=== PATIENT | female | born 1960 | race Caucasian/White ===

== ENCOUNTER 2016-04-16 20:13 | Emergency (ER) | payer OTHER ==
[2016-04-16] MEDS ORDERED: HYDROCODONE/ACETAMINOPHEN 5/325MG TABLET ONE (20:50)
--- NOTE | 2016-04-17 07:34 | RAD ---
ADDENDUM #1 Reevaluation of the examination was performed. There is a nondisplaced subtle fracture identified involving the posterior aspect of the right ninth rib. The subsequently described a definitive fracture is not well delineated on this exam. ORIGINAL REPORT History: Fell downstairs. Comparison: 01/29/2015. Technique: 2 views Findings: The soft tissue and bony structures are unremarkable. The heart size is appropriate. No infiltrate, effusion or pneumothorax is observed. The hilar and mediastinal structures are normal. Impression: 1. A negative 2 view chest
== END 2016-04-16 23:21 | disposition home or self-care (01) ==
LOC: ED 20:13
DX: R07.81 Pleurodynia (principal); I48.91 Unspecified atrial fibrillation; W10.9XXA Fall (on) (from) unspecified stairs and steps, initial encounter; Y92.009 Unspecified place in unspecified non-institutional (private) residence as the place of occurrence of the external cause
CPT/HCPCS: 71020; 99283 ×2; A9270

== ENCOUNTER 2016-05-22 19:43 | Emergency (ER) | payer OTHER ==
[2016-05-22] MEDS ORDERED: MAALOX/LIDO2%VISC/SIMETHICONE 40 ML BOT ONE (20:49)
[2016-05-22 20:59] LABS: ABSOLUTE NEUTROPHIL COUNT 2.8 K/mm3 (1.8-7.7); BASO % 0.6 % (0.2-1.0); EOS # 0.3 (0.0-0.5); EOS % 4.5 % (0.9-2.9); HEMATOCRIT 37.6 % (37.0-47.0); HEMOGLOBIN 12.1 gm/l (12.0-16.0); IMM NEUT% 0.2 % (0-1); LYMPH # 2.6 (1.0-4.8); LYMPH % 41.5 % (15-45); MEAN CELL VOLUME 91.3 fl (81.0-99.0); MEAN CORPUSCULAR HEMOGLOBIN 29.4 pg (27.0-31.0); MEAN CORPUSCULAR HGB CONC 32.2 g/dl (33.0-37.0); MEAN PLATELET VOLUME 10.5 fl (7.4-10.4); MONO # 0.5 (0.0-0.8); MONO % 8.6 % (4-12); NEUT % 44.6 % (43-75); PLATELET COUNT 250 K/mm3 (130-400); RED CELL DISTRIBUTION WIDTH 13.2 % (11.5-14.5)
[2016-05-22 21:08] LABS: ALB/GLOB RATIO 1.3 (>1.0); ALBUMIN 4.3 gm/dL (3.5-5.7); CALCIUM 9.8 mg/dL (8.6-10.3)
[2016-05-22 21:29] LABS: TROPONIN I < 0.01 ng/ml (0.0-0.06)
[2016-05-22 21:32] LABS: CKMB ISOENZYME 1.3 ng/ml (0.6-6.3)
== END 2016-05-22 21:54 | disposition home or self-care (01) ==
LOC: ED 19:43
DX: R00.2 Palpitations (principal); I49.3 Ventricular premature depolarization